=== PATIENT | male | born 1940 | race Caucasian/White ===

== ENCOUNTER 2018-02-13 17:01 | Emergency (ER) | payer MEDICARE, BC ==
[2018-02-13 17:41] LABS: Prothrombin Time 13.6 SEC (12.0-14.7)
[2018-02-13 17:42] LABS: PTT 35.4 SEC (22.9-36.1)
[2018-02-13 17:48] LABS: Band 1 % (5-11); Eosinophils 4 % (0-10); Hemoglobin 13.9 g/dL (14.0-18.0); Lymphocytes 45 % (21-51); MDiff Complete? YES; Mean Corpuscular HGB CONC 33.7 g/dL (32.0-36.0); Mean Corpuscular Hemoglobin 29.9 pg (27.0-31.0); Mean Corpuscular Volume 88.7 fL (78.0-98.0); Mean Platelet Volume 6.5 fL (7.4-10.4); Monocytes 7 % (0-10); Neutrophil 33 % (42-75); PLT Morphology Comment Appears Adequate; Platelet Count 198 thou/uL (130-400); RBC Distribution Width 11.2 % (11.5-14.5); Reactive Lymphocytes 10 % (0-10); Red Blood Cell (RBC) Count 4.63 mill/uL (4.70-6.10); White Blood Cell (WBC) Count 8.5 thou/uL (4.8-10.8)
[2018-02-13 17:52] LABS: ALT (SGPT) 45 U/L (8-55); AST (SGOT) 35 U/L (5-34); Albumin 4.3 g/dL (3.4-4.8); Alkaline Phosphatase 81 U/L (40-150); Anion Gap 18 mmol/L (10-20); BUN (Urea Nitrogen) 26 mg/dL (8.4-25.7); Bilirubin, Total 0.5 mg/dL (0.2-1.2); CK (CPK) 170 U/L (30-200); Calc. Creatinine Clearance 0 mL/min (70-130); Calcium 9.7 mg/dL (7.8-10.44); Carbon Dioxide 21 mmol/L (23-31); Chloride 103 mmol/L (98-107); Estimated GFR-MDRD 41; Globulin 2.6 g/dL (2.4-3.5); Glucose 229 mg/dL (83-110); Magnesium 2.2 mg/dL (1.6-2.6); Potassium 4.2 mmol/L (3.5-5.1); Protein, Total 6.9 g/dL (5.8-8.1); Sodium 138 mmol/L (136-145)
[2018-02-13 17:54] LABS: CKMB 3.4 ng/mL (0-6.6); Troponin I 0.015 ng/mL (< 0.028)
[2018-02-13] MEDS ORDERED: Diltiazem 125 MG/25 ML ONE (18:31)
--- NOTE | 2018-02-13 19:18 | RAD ---
PORTABLE CHEST: History: Chest pain Comparison: 10-20-16 FINDINGS: The lungs appear clear of infiltrate. Heart size is upper normal. Vascular markings upper normal. Pos t op sternotomy changes again noted. IMPRESSION: No infiltrate or acute process apparent. POS: [facility]
== END 2018-02-13 20:12 | disposition short-term general hospital (02) ==
LOC: MADERS 17:01
DX: I48.92 Unspecified atrial flutter (principal); I25.10 Atherosclerotic heart disease of native coronary artery without angina pectoris; I48.91 Unspecified atrial fibrillation; I25.2 Old myocardial infarction; E78.5 Hyperlipidemia, unspecified; E03.9 Hypothyroidism, unspecified; E11.9 Type 2 diabetes mellitus without complications; Z79.4 Long term (current) use of insulin; I10 Essential (primary) hypertension; F32.9 Major depressive disorder, single episode, unspecified; Z79.82 Long term (current) use of aspirin; Z79.899 Other long term (current) drug therapy
CPT/HCPCS: 36415; 71045; 80053; 82553; 83735; 83880; 84443; 84484; 85025; 85610; 85730; 93005; 96365; 96366; 96376; J2997

== ENCOUNTER 2018-07-26 01:48 | Emergency (ER) | payer MEDICARE, BC ==
[2018-07-26] MEDS ORDERED: Ondansetron PF 4 MG/2 ML Vial ONE (02:19)
[2018-07-26] MEDS ORDERED: Acetaminophen 500 MG TAB ONE (02:19)
[2018-07-26] MEDS ORDERED: Sodium Chloride 0.9% 1,000 ML ONE ×2 (02:19→03:39)
[2018-07-26 02:29] LABS: Bilirubin Negative (Negative); Blood, Urine Small (Negative); Clarity Clear (Clear); Glucose, Urine (Dipstick) 500 mg/dL (Negative); Leukocyte Negative (Negative); Nitrite Negative (Negative); Protein, Urine (Dipstick) 100 mg/dL (Neg-Trace); Urobilinogen 0.2 mg/dL (0.2-1.0); pH, Urine 5.5 (5.0-9.0)
[2018-07-26 02:31] LABS: #Basophils 0.1 thou/uL (0.0-0.2); #Eosinphils 0.1 thou/uL (0.0-0.7); #Lymphocytes 4.7 thou/uL (1.20-3.40); #Monocytes 0.4 thou/uL (0.11-0.59); #Neutrophils 10.9 thou/uL (1.40-6.50); %Basophils 0.4 % (0.0-1.0); %Eosinophils 0.4 % (0.0-10.0); %Lymphocytes 29.2 % (21.0-51.0); %Monocytes 2.3 % (0.0-10.0); %Neutrophils 67.7 % (42.0-75.0); Hemoglobin 13.1 g/dL (14.0-18.0); Mean Corpuscular HGB CONC 33.2 g/dL (32.0-36.0); Mean Corpuscular Hemoglobin 29.8 pg (27.0-31.0); Mean Platelet Volume 7.5 fL (7.4-10.4); Platelet Count 172 thou/uL (130-400); RBC Distribution Width 12.2 % (11.5-14.5); Red Blood Cell (RBC) Count 4.39 mill/uL (4.70-6.10); White Blood Cell (WBC) Count 16.1 thou/uL (4.8-10.8)
[2018-07-26 02:39] LABS: AST (SGOT) 17 U/L (5-34); Anion Gap 21 mmol/L (10-20); Calc. Creatinine Clearance 0 mL/min (70-130); Calcium 8.5 mg/dL (7.8-10.44); Carbon Dioxide 16 mmol/L (23-31); Chloride 102 mmol/L (98-107); Estimated GFR-MDRD 42; Potassium 4.4 mmol/L (3.5-5.1); Protein, Total 6.5 g/dL (5.8-8.1); Sodium 135 mmol/L (136-145)
[2018-07-26 02:49] LABS: Specific Gravity, Urine 1.019 (1.002-1.036)
[2018-07-26 02:49] LABS: ALT (SGPT) 20 U/L (8-55); Alkaline Phosphatase 94 U/L (40-150); BUN (Urea Nitrogen) 28 mg/dL (8.4-25.7); Globulin 2.5 g/dL (2.4-3.5); Glucose 334 mg/dL (83-110)
[2018-07-26 02:50] LABS: Bacteria/HPF None Seen HPF (None Seen); RBC/HPF 0-3 HPF (0-3); Squamous Epithelial None Seen HPF (0-3); WBC/HPF 0-3 HPF (0-3)
[2018-07-26] MEDS ORDERED: Insulin Regular 300 UNITS/3 ML VIAL ONE (02:54)
[2018-07-26 03:06] LABS: CKMB 1.6 ng/mL (0-6.6)
[2018-07-26] MEDS ORDERED: Sodium Chloride 0.9% 100 ML ONE (03:16)
[2018-07-26] MEDS ORDERED: cefTRIAXone\\ROCEPHIN 1 GM VIAL ONE (03:16)
--- NOTE | 2018-07-26 07:39 | RAD ---
AP view chest. HISTORY: Chest pain. Comparison made to previous exam from 02/13/2018. AP view chest demonstrates sternotomy wires seen. Is been interval placement of a dual-lead intracard iac pacing device. EKG leads seen over the chest. Mild cardiomegaly seen. Pulmonary vascular congestion noted. No evidence of acute intrathoracic abnormality seen. IMPRESSION: Mild cardiomegaly and pulmonary vascular congestion.
== END 2018-07-26 05:34 | disposition short-term general hospital (02) ==
LOC: MADERS 01:48
DX: A41.9 Sepsis, unspecified organism (principal); R07.9 Chest pain, unspecified; I25.10 Atherosclerotic heart disease of native coronary artery without angina pectoris; I25.2 Old myocardial infarction; I48.91 Unspecified atrial fibrillation; E78.5 Hyperlipidemia, unspecified; E03.9 Hypothyroidism, unspecified; E11.9 Type 2 diabetes mellitus without complications; I10 Essential (primary) hypertension; F32.9 Major depressive disorder, single episode, unspecified; Z79.4 Long term (current) use of insulin; Z79.899 Other long term (current) drug therapy; Z79.01 Long term (current) use of anticoagulants; Z79.82 Long term (current) use of aspirin
CPT/HCPCS: 36415; 71045; 80053; 81003; 81015; 82553; 83605; 83880; 84484; 85025; 87040; 87086; 87804; 93005; 94760; 96361; 96365; 96375; J0696; J1815; J2405; J3490; J7050

== ENCOUNTER 2021-10-07 20:58 | Emergency (ER) | payer BC ==
[2021-10-07] MEDS ORDERED: Boostrix 0.5 ML (Tdap) VIAL ONE (22:42)
== END 2021-10-07 22:53 | disposition home or self-care (01) ==
LOC: MADERS 20:58
DX: S09.90XA Unspecified injury of head, initial encounter (principal); S16.1XXA Strain of muscle, fascia and tendon at neck level, initial encounter; S50.311A Abrasion of right elbow, initial encounter; M25.512 Pain in left shoulder; I25.2 Old myocardial infarction; E78.5 Hyperlipidemia, unspecified; E03.9 Hypothyroidism, unspecified; E11.9 Type 2 diabetes mellitus without complications; I10 Essential (primary) hypertension; Z79.4 Long term (current) use of insulin; Z79.899 Other long term (current) drug therapy; W19.XXXA Unspecified fall, initial encounter
CPT/HCPCS: 70450; 72125; 90471; 90715

== ENCOUNTER 2021-11-29 19:47 | Emergency (ER) | payer BC ==
[2021-11-29] MEDS ORDERED: Nitroglycerin 2% Ointment 1 INCH/1 GM Packet ONE (20:28)
[2021-11-29] MEDS ORDERED: Aspirin Chewable 81 MG TAB ONE (20:28)
[2021-11-29 20:36] LABS: #Basophils 0.1 thou/uL (0.0-0.2); #Eosinphils 0.1 thou/uL (0.0-0.7); #Lymphocytes 2.5 thou/uL (1.20-3.40); #Monocytes 0.6 thou/uL (0.11-0.59); #Neutrophils 3.6 thou/uL (1.40-6.50); %Basophils 1.2 % (0.0-1.0); %Eosinophils 1.6 % (0.0-10.0); %Lymphocytes 36.4 % (21.0-51.0); %Monocytes 8.4 % (0.0-10.0); %Neutrophils 52.4 % (42.0-75.0); Hemoglobin 11.3 g/dL (14.0-18.0); Mean Corpuscular HGB CONC 32.4 g/dL (32.0-36.0); Mean Corpuscular Volume 92.8 fL (78.0-98.0); Mean Platelet Volume 7.5 fL (7.4-10.4); Platelet Count 188 thou/uL (130-400); RBC Distribution Width 13.1 % (11.5-14.5); Red Blood Cell (RBC) Count 3.75 mill/uL (4.70-6.10); White Blood Cell (WBC) Count 6.8 thou/uL (4.8-10.8)
[2021-11-29 20:59] LABS: ALT (SGPT) 48 U/L (8-55); AST (SGOT) 34 U/L (5-34); Albumin 3.8 g/dL (3.4-4.8); Alkaline Phosphatase 94 U/L (40-110); Anion Gap 14 mmol/L (10-20); BUN (Urea Nitrogen) 20 mg/dL (8.4-25.7); Bilirubin, Total 0.9 mg/dL (0.2-1.2); Calc. Creatinine Clearance 0 mL/min (70-130); Calcium 9.1 mg/dL (7.8-10.44); Carbon Dioxide 21 mmol/L (23-31); Chloride 105 mmol/L (98-107); Estimated GFR 55; Globulin 2.4 g/dL (2.4-3.5); Glucose 197 mg/dL (83-110); Potassium 4.2 mmol/L (3.5-5.1); Protein, Total 6.2 g/dL (5.8-8.1); Sodium 136 mmol/L (136-145)
[2021-11-29 21:22] LABS: CKMB 3.3 ng/mL (0-6.6)
== END 2021-11-29 22:05 | disposition left against medical advice (07) ==
LOC: MADERS 19:47
DX: I20.0 Unstable angina (principal); I10 Essential (primary) hypertension; I48.91 Unspecified atrial fibrillation; I25.2 Old myocardial infarction; E78.00 Pure hypercholesterolemia, unspecified; E03.9 Hypothyroidism, unspecified; E11.9 Type 2 diabetes mellitus without complications; Z95.0 Presence of cardiac pacemaker
CPT/HCPCS: 71045; 80053; 82553; 83880; 84484; 85025; 93005; 94760